=== PATIENT | female | born 1990 | race Caucasian/White ===

== ENCOUNTER 2021-07-09 23:10 | Emergency (ER) | payer MEDICARE, MEDICAID, SELFPAY ==
[2021-07-09 23:39] VITALS: BP 113/50; PULSE 119; RESP 18; TEMP 36.6; O2SAT 98; BMI 22.3
[2021-07-10 00:54] LABS: Appearance Urine HAZY; Color Urine DK YELLOW; Glucose Urine UA NEG (NEG); Leukocyte Esterase Urine NEG (NEG); Nitrite Urine NEG (NEG); Specific Gravity - Urine >= 1.030 (1.005-1.025); UACC Culture Trigger NO; Urine Blood TRACE (NEG); Urine Ketones 40 MG/DL (NEG); Urine Protein 2+ MG/DL (NEG-TRACE)
[2021-07-10 01:04] LABS: Amorphous Sediment Urine TRACE /LPF; Bacteria Urine TRACE /LPF; Mucus Urine 3+ /LPF; RBC Urine 0-2 /HPF (0); Squamous Epithelial Cell Urine 2+ /LPF; WBC Urine 0-2 /HPF (0-4)
== END 2021-07-10 02:05 | disposition left against medical advice (07) ==
PROVIDERS: Emergency Provider Emergency Medicine
DX: S05.91XA Unspecified injury of right eye and orbit, initial encounter (principal); Y04.2XXA Assault by strike against or bumped into by another person, initial encounter; Y93.9 Activity, unspecified; Y92.9 Unspecified place or not applicable; Y99.9 Unspecified external cause status
CPT/HCPCS: 81001; 99282; 99283

== ENCOUNTER 2021-07-11 20:37 | Inpatient (IN) | payer MEDICARE, MEDICAID, SELFPAY ==
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
[2021-07-11 20:57] VITALS: BP 126/67; PULSE 100; O2SAT 99
[2021-07-11 20:59] VITALS: BP 103/56; PULSE 88; RESP 18; TEMP 37.2; O2SAT 100; BMI 21.4
--- NOTE | 2021-07-11 21:06 | PC.NURSE ---
per [facility] from [facility] [place], patient is going to be a inpt bedsearch as she already evaluated the patient on scene.
[2021-07-11 21:43] LABS: UPreg QC Valid YES; Urine Pregnancy NEGATIVE (NEGATIVE)
[2021-07-11 22:07] LABS: Amphetamine Screen Urine Not Detected (Not Detect); Barbiturates, Urine Not Detected (Not Detect); Benzodiazepines Screen Urine POSITIVE (Not Detect); Cannabinoid Screen Urine POSITIVE (Not Detect); Cocaine Screen Urine Not Detected (Not Detect); Fentanyl, urine Not Detected (Not Detect); Opiate Screen Urine Not Detected (Not Detect); Phencyclidine Screen Urine Not Detected (Not Detect)
[2021-07-11 22:22] LABS: COVID-19 Test Negative (Negative)
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
--- NOTE | 2021-07-11 23:52 | PC.NURSE ---
Provider just in to see pt.
--- NOTE | 2021-07-12 03:10 | PC.NURSE ---
Pt came out of room asking for trash bin. Became tearful, irritable edge, asking where the girl with the long hair was , stating that she had seen her earlier and she was supposed to come back to sign a paper for her to be able to leave. Pt agitated, threw empty trash cup. Went back to her room yelling no one f cares about me . Sitting on her bed crying and repeatedly stating I've done everything you've asked, no one cares . Provider at bedside. Pt to go for CT scan.
--- NOTE | 2021-07-12 03:28 | PC.NURSE ---
Pt back from CT scan. Tearful, repeatedly stating no one cares, states that she came here voluntarily and she is being kept here.
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
[2021-07-12] MEDS: LORazepam 2 MG/ML VIAL IM (06:25)
[2021-07-12] MEDS: OLANZapine 10 MG VIAL 5 MG IM (06:25)
[2021-07-12] MEDS: diphenhydrAMINE HCL 50 MG/ML VIAL IM (06:25)
[2021-07-12 06:30] VITALS: RESP 20
--- NOTE | 2021-07-12 06:34 | PC.NURSE ---
Pt continues to be agitated, perseverating on wanting to leave. Provider was at bedside to talk with pt, however pt unable to have logical conversation as she just repeats wanting to go home, asking different staff if they are God. Pt was again offered medication by different staff, continues to refuse. Security present at this time. Provider ordered IM meds to be given as medication restraint. Zyprexa 5 mg, Ativan 2 mg, Benadryl 50 mg given IM at 0625 without incident. Pt remained agitated for a short time, by 0645 laying in bed, in behavioral control.
[2021-07-12 06:43] VITALS: RESP 18
[2021-07-12 07:00] VITALS: RESP 16
[2021-07-12 07:55] VITALS: BP 112/65; PULSE 75; RESP 16; O2SAT 100
--- NOTE | 2021-07-12 07:57 | PC.NURSE ---
Patient vitals are stable resting comfortably in bed no s/s of distress md made aware.
[2021-07-12] MEDS: ALPRAZolam 0.5 MG TABLET PO (15:33)
--- NOTE | 2021-07-12 18:02 | PC.NURSE ---
DCF called requesting an interview with patient advised that there was no private area for discussion at this time as pod has 8 patients. DCF worker will review with supervisor money room to decide best course of action and call if they will be in tonight. [facility] number is [phone]
[2021-07-12 18:25] LABS: MANUAL DIFF FLAG NO
[2021-07-12 18:27] LABS: Basophils Percent Auto 0.4 % (0-2); Eosinophils Absolute Auto 0.2 X10*3/uL (0.0-0.4); Eosinophils Percent Auto 3.4 % (0-4); Hematocrit 41.8 % (37.0-47.0); Imm Gran Abs Auto 0.01 X10*3/uL (0.00-0.03); Imm Gran Pct Auto 0.1 % (0.0-0.4); Lymphocytes Absolute Auto 3.2 X10*3/uL (1.2-4.9); Lymphocytes Percent Auto 46.5 % (20-40); Mean Corpuscular HGB Conc 33.5 g/dl (31.0-35.0); Mean Corpuscular Hemoglobin 32.3 pg (27.0-33.0); Mean Corpuscular Volume 96.5 fL (80.0-98.0); Mean Platelet Volume 9.5 fL (9.4-12.3); Monocytes Absolute Auto 0.7 X10*3/uL (0.1-1.2); Neutrophils Absolute Auto 2.7 x10*3/uL (2.0-8.3); Neutrophils Percent Auto 39.6 % (45-73); Platelet Count 224 X10*3/uL (160-400); Red Blood Count 4.33 X10*6/uL (4.20-5.50); Red Cell Distribution Width 12.9 % (11.0-16.0); White Blood Count 6.8 X10*3/uL (4.8-10.8)
[2021-07-12 18:43] LABS: Alanine Aminotransferase 46 U/L (0-31); Albumin Level 4.2 g/dL (3.5-5.0); Alkaline Phosphatase 73 U/L (39-117); Anion Gap 13 (12-20); Aspartate Amino Transferase 61 U/L (5-31); Blood Urea Nitrogen 10 mg/dL (9-16); Calcium 9.2 mg/dL (8.4-10.2); Carbon Dioxide 25 mmol/L (22-29); Chloride 108 mmol/L (96-108); Creatinine Clr Calc Pharmacy 103.9; Estimated Glomerular Filt Rate > 60; Glucose Random 108 mg/dL (60-115); Magnesium 2.4 mg/dL (1.6-2.6); Potassium 3.6 mmol/L (3.3-5.1); Sodium 142 mmol/L (135-145); Total Protein 7.3 g/dL (6.5-8.0)
--- NOTE | 2021-07-12 19:05 | PC.NURSE ---
Pt talking with other Pt in community area, Pt calm/cooperative at this time, safety maintained, this RN continues to monitor.
[2021-07-12] MEDS: OXcarbazepine 300 MG TABLET PO (19:52)
--- NOTE | 2021-07-12 20:10 | PC.NURSE ---
Pt took bedtime meds without incident, Pt calm/cooperative at this time, safety maintained, this RN continues to monitor.
[2021-07-13] MEDS: ALPRAZolam 0.5 MG TABLET PO ×2 (03:03→08:34)
--- NOTE | 2021-07-13 03:15 | PC.NURSE ---
Pt given PRN Xanax per PT request, Pt calm/cooperative at this time, safety maintained, this RN continues to monitor.
[2021-07-13 03:59] VITALS: BP 110/70; PULSE 84; RESP 17; O2SAT 99
[2021-07-13 05:45] VITALS: BP 113/69; PULSE 83; RESP 18; TEMP 36.7; O2SAT 100
--- NOTE | 2021-07-13 06:35 | PC.NURSE ---
Pt taking shower, tech outside door, safety maintained, this RN continue to monitor.
[2021-07-13] MEDS: OLANZapine 5 MG TABLET PO (08:34)
--- NOTE | 2021-07-13 11:56 | PC.NURSE ---
DCF at bedside to speak with pt
[2021-07-13 15:52] VITALS: BP 99/53; PULSE 85; RESP 15; TEMP 36.7; O2SAT 98
--- NOTE | 2021-07-13 16:09 | PC.NURSE ---
pt seen by N, pt continues to be a [facility] bed search. she showered twice on this shift, is labile and tearful at times. mostly cooperative. no complaints at this time. NAD. will continue to monitor
[2021-07-13] MEDS: OXcarbazepine 300 MG TABLET PO (20:15)
--- NOTE | 2021-07-14 | ECG_ITS ---
Test Reason : MEDICAL CLEARANCE Blood Pressure : / mmHG Vent. Rate : 079 BPM Atrial Rate : 079 BPM P-R Int : 132 ms QRS Dur : 090 ms QT Int : 392 ms P-R-T Axes : 078 088 077 degrees QTc Int : 449 ms Normal sinus rhythm Normal ECG When compared with ECG of 30-AUG-2017 15:16, No significant change was found Referred By: Alona Snowden Electronically Signed By:MODESTO AQUINO MD
[2021-07-14 01:17] VITALS: BP 123/71; PULSE 81; RESP 16; TEMP 37.3; O2SAT 100
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
[2021-07-14] MEDS: ALPRAZolam 0.5 MG TABLET PO ×3 (07:26→21:04)
--- NOTE | 2021-07-14 07:30 | PC.NURSE ---
patient awake at beginning of shift wandering in unit on telephone call and soon thereafter requesting xanax. patient appears in no distress.
[2021-07-14 13:44] LABS: COVID-19 Test Negative (Negative)
[2021-07-14 16:21] VITALS: BP 100/58; PULSE 89; RESP 18; TEMP 37.3; O2SAT 100
[2021-07-14 18:00] VITALS: BP 110/67; PULSE 74; RESP 18; TEMP 36.6; O2SAT 99
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
[2021-07-14] MEDS: OXcarbazepine 300 MG TABLET PO (21:04)
[2021-07-14] MEDS: OLANZapine 10 MG TABLET PO (21:04)
[2021-07-15] MEDS: Acetaminophen 325 MG TABLET 650 MG PO (08:42)
[2021-07-15 08:44] VITALS: BP 119/65; PULSE 77; TEMP 36.2; O2SAT 100
[2021-07-15 08:58] LABS: Cholesterol 143 mg/dL; Estimated Average Glucose 97 mg/dL; HDL Cholesterol 33 mg/dL; LDL Cholesterol Calculated 95 mg/dl; Triglycerides 78 mg/dL
[2021-07-15] MEDS: ALPRAZolam 0.5 MG TABLET PO ×3 (10:09→22:50)
--- NOTE | 2021-07-15 13:14 | MHC.CLN ---
NUTRITION DISCUSSED WEIGHT LOSS WITH PATIENT. STATED THAT WAS FASTING DURING LENT AND LOST WEIGHT. APPETITE IS BETTER. LIKES ENSURE. ADDING ENSURE BID TO PROVIDE ADDITIONAL 700 KCAL, 40 G PROTEIN.
[2021-07-15 18:00] VITALS: BP 140/62; PULSE 96; RESP 16; TEMP 36.6; O2SAT 100
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
[2021-07-15] MEDS: OLANZapine 10 MG TABLET PO (21:16)
[2021-07-15] MEDS: OXcarbazepine 300 MG TABLET PO (21:16)
[2021-07-15] MEDS: OLANZapine 5 MG TABLET PO (22:50)
[2021-07-16] MEDS: Acetaminophen 325 MG TABLET 650 MG PO (05:16)
[2021-07-16 08:17] VITALS: BP 134/63; PULSE 85; RESP 17; TEMP 36.6; O2SAT 100
[2021-07-16] MEDS: Magnesium Hydrox/Alum Hydrox 30 ML ORAL.SUSP PO (11:51)
--- NOTE | 2021-07-16 15:58 | HO.PSYCHPN ---
Subjective Subjective Date of Service: 07/16/21 Reason For Visit: disorganized behavior Interim History: pt calm and cooperative. black eye slightly improved. reports feeling more calm and focused now, more optimistic. planning to discharge tomorrow. per staff, 3-day matures 07/17. missing kids. no AVH. interacting appropriately, some crying and screaming eves, though. c/o racing thoughts. up from 0330 this morning. Mental Status Exam Mental Status Exam Narrative: appropriately dressed and groomed. substantial black eye and injected sclera of right eye. cooperative. no PMA/PMR. speech nml in amount, rate, loudness, latency. thoughts generally linear and logical. affect constricted. mood euthymic. no SI/HI/AVH expressed. Diagnostics Vital Signs (24Hr): Vital Signs - 24 hr 07/15/21 18:00 07/16/21 08:17 Temperature 97.9 F 97.9 F Pulse Rate 96 85 Respiratory Rate 16 17 Blood Pressure 140/62 H 134/63 Pulse Oximetry 100 100 BMI result Body Mass Index 21.4 Labs Results: 07/12/21 18:20 07/12/21 18:20 Labs: Laboratory Results - last 48 hr 07/15/21 07/15/21 08:22 08:22 Estimat Average Glucose 97 Hemoglobin A1c % 5.0 Triglycerides 78 Cholesterol 143 LDL Cholesterol, Calc 95 HDL Cholesterol 33 Imaging Radiology Impressions: ITS Impressions Face CT 07/12/21 03:30 IMPRESSION: 1. No acute intracranial findings. 2. No acute maxillofacial fracture. Head CT 07/12/21 03:30 IMPRESSION: 1. No acute intracranial findings. 2. No acute maxillofacial fracture. Medications Medications Current Medications Acetaminophen (Acetaminophen 325 Mg Tablet) 650 mg PO Q6H PRN PRN Reason: Headache/Pain Mild Scale (1-3) Last Admin: 07/16/21 05:16 Dose: 650 mg Documented by: Al Hydroxide/Mg Hydroxide (Magnesium Hydrox/Alum Hydrox 30 Ml Oral.Susp) 30 ml PO Q6H PRN PRN Reason: Heartburn/Nausea Last Admin: 07/16/21 11:51 Dose: 30 ml Documented by: Albuterol Sulfate (Albuterol Sulfate 90 Mcg 8 Gm Inhaler) 1 puff INHALE Q4H PRN PRN Reason: wheezing Alprazolam (Alprazolam 0.5 Mg Tablet) 0.5 mg PO QID PRN PRN Reason: anxiety Last Admin: 07/15/21 22:50 Dose: 0.5 mg Documented by: Hydroxyzine HCl (Hydroxyzine Hcl 25 Mg Tablet) 25 mg PO QID PRN PRN Reason: Anxiety Loratadine (Loratadine 10 Mg Tablet) 10 mg PO DAILY PRN PRN Reason: allergic rhinitis Magnesium Hydroxide (Milk Of Magnesia 30 Ml Oral.Susp) 30 ml PO DAILY PRN PRN Reason: Constipation Nicotine Polacrilex (Nicotine Polacrilex 2 Mg Gum) 2 mg BUCCAL Q2H PRN PRN Reason: Nicotine Cravings Nicotine Polacrilex (Nicotine Polacrilex 2 Mg Gum) 4 mg BUCCAL Q2H PRN PRN Reason: Nicotine Cravings Olanzapine (Olanzapine 5 Mg Tablet) 5 mg PO BID PRN PRN Reason: anxiety/agitation Last Admin: 07/15/21 22:50 Dose: 5 mg Documented by: Olanzapine (Olanzapine 10 Mg Tablet) 10 mg PO BEDTIME DARRYL Last Admin: 07/15/21 21:16 Dose: 10 mg Documented by: Oxcarbazepine (Oxcarbazepine 300 Mg Tablet) 300 mg PO BEDTIME DARRYL Last Admin: 07/15/21 21:16 Dose: 300 mg Documented by: Trazodone HCl (Trazodone Hcl 50 Mg Tablet) 50 mg PO BEDTIME PRN PRN Reason: Insomnia Allergies Allergies Allergy/AdvReac Type Severity Reaction Status Date / Time No Known Allergies Allergy Unverified 12/14/19 17:07 [No Known Allergies*] Assessment & Plan Assessment & Plan (1) Mood disorder: Status: Acute Code(s): F39 - Unspecified mood [affective] disorder Assessment and Plan: R/O PTSD R/O personality disorder R/O Bipolar Disorder Plan restarted outpt regimen of trileptal 300 mg at HS. added zyprexa 10 mg at HS. xanax at 0.5 mg QID PRN for now. discharge tomorrow. I spent ___25___ minutes with the patient and/or on the patient floor today, greater than?50% of which was spent counseling/coordinating care. Reason for contiued inpatient stay Substantial Risk for: harm to self, inability to function and rapid decompensation
[2021-07-16] MEDS: Nicotine Polacrilex 2 MG GUM BUCCAL (20:03)
[2021-07-16] MEDS: ALPRAZolam 0.5 MG TABLET PO (20:03)
[2021-07-16 20:16] VITALS: BP 127/75; PULSE 100; RESP 16; TEMP 36.6; O2SAT 100
[2021-07-16] MEDS: OXcarbazepine 300 MG TABLET PO (20:41)
[2021-07-16] MEDS: OLANZapine 10 MG TABLET PO (20:41)
[2021-07-17 07:50] VITALS: BP 118/67; PULSE 92; RESP 16; TEMP 36.6; O2SAT 98
[2021-07-17] MEDS: ALPRAZolam 0.5 MG TABLET PO (08:06)
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
[2021-07-17] MEDS: hydrOXYzine HCL 25 MG TABLET PO (10:54)
[2021-07-17] MEDS: OLANZapine 5 MG TABLET PO (10:55)
== END 2021-07-17 10:58 | disposition home or self-care (01) | DRG 885 ==
LOC: HO.ED 07-14 12:07 → HO.PADLT16 07-14 16:35
PROVIDERS: Physician Assistant; Psychiatry & Neurology Psychiatry; Admitting Provider Psychiatry & Neurology Psychiatry; Emergency Provider Emergency Medicine; Visit Provider Psychiatry & Neurology Psychiatry
DX: F39 Unspecified mood [affective] disorder (principal); S00.11XA Contusion of right eyelid and periocular area, initial encounter; Y04.2XXA Assault by strike against or bumped into by another person, initial encounter; Y07.12 Biological mother, perpetrator of maltreatment and neglect; Z20.822 Contact with and (suspected) exposure to COVID-19; F17.210 Nicotine dependence, cigarettes, uncomplicated; Z71.6 Tobacco abuse counseling; Z79.51 Long term (current) use of inhaled steroids; Z79.899 Other long term (current) drug therapy
CPT/HCPCS: 36415; 70450; 70486; 80053; 80061; 80307; 81025; 83036; 83735; 85025; 87635; 93005; 96372; 99285; J1200; J2060

== ENCOUNTER 2021-09-04 20:47 | Inpatient (IN) | payer MEDICARE, MEDICAID, SELFPAY ==
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
[2021-09-05 07:52] LABS: Estimated Average Glucose 91 mg/dL; Hemoglobin A1c % 4.8 %
[2021-09-05 08:01] LABS: Cholesterol 163 mg/dL; HDL Cholesterol 51 mg/dL; LDL Cholesterol Calculated 98 mg/dl; Magnesium 2.2 mg/dL (1.6-2.6); Triglycerides 72 mg/dL
[2021-09-05 08:23] LABS: Thyroid Stimulating Hormone 2.58 uIU/mL (0.32-4.0)
[2021-09-05] MEDS: Multivitamin TABLET 1 TAB PO (08:48)
[2021-09-05 08:53] VITALS: BP 113/64; PULSE 77; RESP 17; TEMP 36.8; O2SAT 100
[2021-09-05 08:57] LABS: Folate 16.4 ng/mL (> or = 4.0); Vitamin B12 471 pg/mL (200-900)
[2021-09-05] MEDS: HaloperidoL 1 MG TABLET 3 MG PO (11:59)
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
[2021-09-05 21:14] VITALS: BP 99/54; PULSE 70; RESP 16; TEMP 36.3; O2SAT 100
[2021-09-05] MEDS: diphenhydrAMINE HCL 25 MG TABLET PO (21:18)
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
[2021-09-06] MEDS: Multivitamin TABLET 1 TAB PO (09:13)
[2021-09-06 09:20] VITALS: BP 116/55; PULSE 82; RESP 18; TEMP 36.6; O2SAT 100
[2021-09-06] MEDS: Acetaminophen 325 MG TABLET 650 MG PO ×2 (09:34→17:12)
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
[2021-09-06] MEDS: Folic Acid 1 MG TABLET PO (17:07)
--- NOTE | 2021-09-06 17:15 | HE.PHANOTE ---
Discussed risk vs benefit of haldol, alprazolam and hydroxyzine with Sheela Valadez. Per physician higher doses of benzos (ie clonazpam 8mg ) could be potentially dangerous to use, but lower doses are acceptable to use.
[2021-09-06 20:35] VITALS: BP 114/56; PULSE 80; RESP 18; TEMP 36.7; O2SAT 100
[2021-09-06] MEDS: HaloperidoL 1 MG TABLET 3 MG PO (20:55)
[2021-09-06] MEDS: diphenhydrAMINE HCL 25 MG TABLET PO (20:55)
[2021-09-06] MEDS: ALPRAZolam 0.5 MG TABLET PO (20:55)
[2021-09-06] MEDS: Pyridoxine HCl (Vitamin B6) 50 MG TABLET 25 MG PO (20:55)
--- NOTE | 2021-09-07 07:00 | HO.PSYCHPN ---
Subjective Subjective Date of Service: 09/07/21 Reason For Visit: Depression Interim History: Pt reports tightness of jaw and difficulty speaking, which could be related to haldol. She agrees to IM benadryl as she states she ahs had paradoxycal rx to ativan. Pt reports she is willing to try another antipsychotic and even would like a GEORGE. She agrees to take paliperidone 3mg po qhs- reviewed most data on haldol, less so on paliperidone but benefit seems to outweight risk of potential low weight at , less so for malformations. Medication Compliance: Yes Side effects from medications: No Review of Systems Review of Systems Denies any recent fever chills or decrease in appetite respiratory denies any shortness of breath coverage production cardiovascular denies cardiac disease gastrointestinal denies any dysphagia abdominal pain nausea vomiting or diarrhea genitourinary denies any dysuria frequency or hematuria musculoskeletal denies any joint pain or swelling neuropsych denies any weakness or seizures all other systems reviewed are negative Mental Status Exam Mental Status Exam Narrative: A&O. In hospital attire, normal body habitus. Good eye contact, attentive. No Tics or Tremors. No abnormal involuntary movements. Calm, overall cooperative and engaged but minimizing sx. Non-pressured speech, spontaneous with regular rate and rhythm, normal volume and prosody. No prolonged speech latency or dysarthria. Mood is ?fine,? affect is euthymic. Denies SI/SIB/HI upon inquiry. Denies A/VH or delusional thought content. Thoughts are grandiose. No known cognitive or memory impairment. Insight/ Judgment limited. Diagnostics Vital Signs (24Hr): Vital Signs - 24 hr 09/07/21 08:14 09/07/21 11:15 09/07/21 13:39 Temperature 98.2 F Pulse Rate 82 89 90 Respiratory Rate 18 20 18 Blood Pressure 105/54 L 105/54 L 116/54 L Pulse Oximetry 98 99 99 Oxygen Delivery Method Room Air Room Air Room Air 09/07/21 13:45 09/07/21 18:00 Temperature 98.3 F Pulse Rate 90 89 Respiratory Rate 18 18 Blood Pressure 116/54 L 113/59 L Pulse Oximetry 99 100 Oxygen Delivery Method Room Air Room Air Labs Labs: Laboratory Results - last 48 hr 09/06/21 13:43 Beta HCG, Quant [id number] Medications Medications Current Medications Acetaminophen (Acetaminophen 325 Mg Tablet) 650 mg PO Q6H PRN PRN Reason: Headache/Pain Mild Scale (1-3) Last Admin: 09/07/21 20:56 Dose: 650 mg Al Hydroxide/Mg Hydroxide (Magnesium Hydrox/Alum Hydrox 30 Ml Oral.Susp) 30 ml PO Q6H PRN PRN Reason: Heartburn/Nausea Alprazolam (Alprazolam 0.5 Mg Tablet) 0.5 mg PO BID [facility] Last Admin: 09/07/21 20:54 Dose: 0.5 mg Diphenhydramine HCl (Diphenhydramine Hcl 25 Mg Tablet) 25 mg PO BEDTIME [facility] Last Admin: 09/07/21 20:56 Dose: 25 mg Folic Acid (Folic Acid 1 Mg Tablet) 1 mg PO DAILY [facility] Last Admin: 09/07/21 08:00 Dose: 1 mg Hydroxyzine HCl (Hydroxyzine Hcl 25 Mg Tablet) 25 mg PO Q6H PRN PRN Reason: Anxiety Magnesium Hydroxide (Milk Of Magnesia 30 Ml Oral.Susp) 30 ml PO DAILY PRN PRN Reason: Constipation Multivitamins/Vitamin C (Multivitamin Tablet) 1 tab PO DAILY [facility] Last Admin: 09/07/21 08:00 Dose: 1 tab Paliperidone (Paliperidone Er 3 Mg Tab.Er.24) 3 mg PO BEDTIME [facility] Last Admin: 09/07/21 20:56 Dose: 3 mg Pyridoxine HCl (Pyridoxine Hcl (Vitamin B6) 50 Mg Tablet) 25 mg PO BEDTIME [facility] Last Admin: 09/07/21 20:54 Dose: 25 mg Trazodone HCl (Trazodone Hcl 50 Mg Tablet) 50 mg PO BEDTIME PRN PRN Reason: Insomnia Allergies Allergies Allergy/AdvReac Type Severity Reaction Status Date / Time No Known Allergies Allergy Unverified 12/14/19 17:07 [No Known Allergies*] Assessment & Plan Assessment & Plan (1) Schizoaffective disorder, bipolar type: Status: Acute Code(s): F25.0 - Schizoaffective disorder, bipolar type Plan 30-year-old woman admitted to Adult Psychiatric Unit. . At this time she denies any acute medical complaints. Asthma. No exacerbation May continue albuterol as needed Smoker Continue and NRT as needed Patient claims to be 3 months but has not been followed up by an OBGYN as of yet Will check hCG Mental health Management as per psychiatric team 09/06 continue haldol 3mg po qhs- pt does not want higher dose until sure no side effects. we discussed safety during but potential for low weight at , but also considering effects of untreated mental illness on fetus. at this point benefit of tx with antipsychotic outweights risks. 09/07 some degree of dystonia noted, pt asks for different antipsychotic, explain less data on new agents but safe from data considering benefits outweight risks of not treating mental illness at this time. I spent ___25___ minutes with the patient and/or on the patient floor today, greater than?50% of which was spent counseling/coordinating care. Reason for contiued inpatient stay Substantial Risk for: inability to function
[2021-09-07] MEDS: Folic Acid 1 MG TABLET PO (08:00)
[2021-09-07] MEDS: Multivitamin TABLET 1 TAB PO (08:00)
[2021-09-07] MEDS: ALPRAZolam 0.5 MG TABLET PO ×2 (08:00→20:54)
[2021-09-07] MEDS: Acetaminophen 325 MG TABLET 650 MG PO ×2 (08:00→20:56)
[2021-09-07 08:14] VITALS: BP 105/54; PULSE 82; RESP 18; TEMP 36.8; O2SAT 98
[2021-09-07] MEDS: diphenhydrAMINE HCL 50 MG/ML VIAL 25 MG IM (10:48)
--- NOTE | 2021-09-07 10:52 | PC.NURSE ---
Patient reported top provider sensation of jaw stiffness causing 'slow' speech. Patient given Benadryl IM as ordered, continue to monitor.
[2021-09-07 11:15] VITALS: BP 105/54; PULSE 89; RESP 20; O2SAT 99
--- NOTE | 2021-09-07 11:48 | PC.NURSE ---
Late entry for 1115: Patient re-evaluated for jaw stiffness- she reports stiffness is nearly resolved 'and I'm less drowsy too.' Patient continues to be tearful at times, concerned about her children, concerned about side effects from the medications.
[2021-09-07 13:39] VITALS: BP 116/54; PULSE 90; RESP 18; O2SAT 99
--- NOTE | 2021-09-07 13:39 | PC.NURSE ---
Reassessed patient who report that she is feeling better 'not so groggy' when asked about her jaw patient reports that 'it's getting there, everything is getting there.' Patient encouraged to notify staff with any concerns or recurrence of symptoms.
[2021-09-07 13:45] VITALS: BP 116/54; PULSE 90; RESP 18; O2SAT 99
[2021-09-07 18:00] VITALS: BP 113/59; PULSE 89; RESP 18; TEMP 36.8; O2SAT 100
[2021-09-07] MEDS: Pyridoxine HCl (Vitamin B6) 50 MG TABLET 25 MG PO (20:54)
[2021-09-07] MEDS: Paliperidone ER 3 MG TAB.ER.24 PO (20:56)
[2021-09-07] MEDS: diphenhydrAMINE HCL 25 MG TABLET PO (20:56)
[2021-09-08 08:09] VITALS: BP 126/58; PULSE 88; RESP 17; TEMP 36.7; O2SAT 100
[2021-09-08] MEDS: Acetaminophen 325 MG TABLET 650 MG PO (08:12)
[2021-09-08] MEDS: ALPRAZolam 0.5 MG TABLET PO (08:12)
[2021-09-08] MEDS: Folic Acid 1 MG TABLET PO (08:12)
[2021-09-08] MEDS: Multivitamin TABLET 1 TAB PO (08:12)
--- NOTE | 2021-09-08 13:43 | P.PNPSI_ITS ---
Subjective Subjective Date of Service: 09/08/21 Reason For Visit: Depression Interim History: pt much more calm and less pressured and labile than on wednesday. recounts her recent dystonic rxn over the w/e and her switch to invega, on which she feels better and w/o side effects. interested in GEORGE at some point. discussion held re her 3-day notice and commitment. informs pt he does not believe she is committable and would not file for that, and at the same time believes pt would be well-served by remaining in the hospital for the time being. pt states she really insists on leaving tomorrow, in that case. she states her hyper- thinking has lessened, but is not feeling too slowed (as she was on haldol). also when her anxiety álvaro recently it levelled and then came down, not spiralling out of control as it had been otherwise recently. per staff, 3-day up tomorrow. tearful, hyperverbal, tangential over w/e. dystonic rxn to haldol. started on invega yesterday. on scheduled xanax. Mental Status Exam Mental Status Exam Narrative: A&O. In street clothes, normal body habitus. Good eye contact, attentive. No Tics or Tremors. No abnormal involuntary movements. Calm, overall cooperative and engaged but minimizing sx. Non-pressured speech, spontaneous with regular rate and rhythm, normal volume and prosody. No prolonged speech latency or dysarthria. Mood is euthymic, affect is full range, normo-intense, non-labile. no SI/SIB/HI/AVH expressed. no delusions expressed, less grandiose, no faith content. No known cognitive or memory impairment. Insight/ Judgment improved. Diagnostics Vital Signs (24Hr): Vital Signs - 24 hr 09/07/21 13:45 09/07/21 18:00 09/08/21 08:09 Temperature 98.3 F 98.1 F Pulse Rate 90 89 88 Respiratory Rate 18 18 17 Blood Pressure 116/54 L 113/59 L 126/58 L Pulse Oximetry 99 100 100 Oxygen Delivery Method Room Air Room Air Room Air Labs Labs: Laboratory Results - last 48 hr 09/06/21 13:43 Beta HCG, Quant [id number] Medications Medications Current Medications Acetaminophen (Acetaminophen 325 Mg Tablet) 650 mg PO Q6H PRN PRN Reason: Headache/Pain Mild Scale (1-3) Last Admin: 09/08/21 08:12 Dose: 650 mg Al Hydroxide/Mg Hydroxide (Magnesium Hydrox/Alum Hydrox 30 Ml Oral.Susp) 30 ml PO Q6H PRN PRN Reason: Heartburn/Nausea Alprazolam (Alprazolam 0.5 Mg Tablet) 0.5 mg PO BID [facility] Last Admin: 09/08/21 08:12 Dose: 0.5 mg Diphenhydramine HCl (Diphenhydramine Hcl 25 Mg Tablet) 25 mg PO BEDTIME [facility] Last Admin: 09/07/21 20:56 Dose: 25 mg Folic Acid (Folic Acid 1 Mg Tablet) 1 mg PO DAILY [facility] Last Admin: 09/08/21 08:12 Dose: 1 mg Hydroxyzine HCl (Hydroxyzine Hcl 25 Mg Tablet) 25 mg PO Q6H PRN PRN Reason: Anxiety Magnesium Hydroxide (Milk Of Magnesia 30 Ml Oral.Susp) 30 ml PO DAILY PRN PRN Reason: Constipation Multivitamins/Vitamin C (Multivitamin Tablet) 1 tab PO DAILY [facility] Last Admin: 09/08/21 08:12 Dose: 1 tab Paliperidone (Paliperidone Er 3 Mg Tab.Er.24) 3 mg PO BEDTIME [facility] Last Admin: 09/07/21 20:56 Dose: 3 mg Pyridoxine HCl (Pyridoxine Hcl (Vitamin B6) 50 Mg Tablet) 25 mg PO BEDTIME [facility] Last Admin: 09/07/21 20:54 Dose: 25 mg Trazodone HCl (Trazodone Hcl 50 Mg Tablet) 50 mg PO BEDTIME PRN PRN Reason: Insomnia Allergies Allergies Allergy/AdvReac Type Severity Reaction Status Date / Time No Known Allergies Allergy Unverified 12/14/19 17:07 [No Known Allergies*] Assessment & Plan Assessment & Plan (1) Schizoaffective disorder, bipolar type: Status: Acute Code(s): F25.0 - Schizoaffective disorder, bipolar type Plan 30 y.o. Female who was brought to [facility] ED on 09/03/2021 via EMS on SEction 12 issued by [facility] after her ex- called 911 as pt reportedly showed up at his home to attempt to get her 2 children. Her ex has full custody and she tried to lure the kids out the window to leave with her. She endorsed grandiose delusions, religiously preoccupied. Pt is 14 weeks , has been med non- adherent, recently discharged from [facility] 08/22/21. Pt has trauma hx. 09/05: began haldol therapy 3 mg PO BID.? first generation neuroleptics not found to be associated with defects, haldol has been around a very long time and has been heavily used in situations such as this.? titrate haldol as tolerated.? if needed, use antihistamines for EPS, as they are considered safer in than cogentin.? VPA, lithium, and tegretol are not considered safe medications for this patient at the present time.? pt signed 3-day notice 09/04. 09/06: continued haldol 3mg po qhs- pt does not want higher dose until sure no side effects. we discussed safety during but potential for low weight at , but also considering effects of untreated mental illness on fetus. at this point benefit of tx with antipsychotic outweights risks. 09/07: some degree of dystonia noted, pt asked for different antipsychotic, explain less data on new agents but safe from data considering benefits out weight risks of not treating mental illness at this time. paliperidone 3 mg QHS started. 09/08: tolerating paliperidone well. continue current mgmt. 3-day matures tomorrow, pt will be discharged to outpt care as she does not meet involuntary hospitalization criteria. I spent ___35___ minutes with the patient and/or on the patient floor today, greater than?50% of which was spent counseling/coordinating care. Reason for contiued inpatient stay Substantial Risk for: inability to function and rapid decompensation
--- NOTE | 2021-09-08 15:22 | MHC.CLN ---
NUTRITION CONSULT FOR ENSURE, PATIENT IS . PATIENT WOULD LIKE ENSURE TID. SUPPLEMENT PROVIDES ADDITIONAL 1050 KCALS, 60 G PROTEIN. ADDED TO ORDER.
[2021-09-08 21:10] VITALS: BP 106/57; PULSE 91; RESP 18; TEMP 36.9; O2SAT 100
[2021-09-08] MEDS: Paliperidone ER 3 MG TAB.ER.24 PO (21:14)
[2021-09-08] MEDS: Pyridoxine HCl (Vitamin B6) 50 MG TABLET 25 MG PO (21:14)
[2021-09-08] MEDS: diphenhydrAMINE HCL 25 MG TABLET PO (21:14)
[2021-09-09 08:00] VITALS: BP 114/69; PULSE 89; RESP 16; TEMP 36.3; O2SAT 100
[2021-09-09] MEDS: Folic Acid 1 MG TABLET PO (09:07)
[2021-09-09] MEDS: ALPRAZolam 0.5 MG TABLET PO (09:07)
[2021-09-09] MEDS: Multivitamin TABLET 1 TAB PO (09:07)
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
== END 2021-09-09 11:45 | disposition home or self-care (01) | DRG 833 ==
PROVIDERS: Nurse Practitioner Acute Care; Registered Nurse; Admitting Provider Psychiatry & Neurology Psychiatry; Visit Provider Psychiatry & Neurology Psychiatry
DX: O99.342 Other mental disorders complicating pregnancy, second trimester (principal); F25.0 Schizoaffective disorder, bipolar type; J45.909 Unspecified asthma, uncomplicated; F43.10 Post-traumatic stress disorder, unspecified; F17.210 Nicotine dependence, cigarettes, uncomplicated; Z62.810 Personal history of physical and sexual abuse in childhood; Z3A.14 14 weeks gestation of pregnancy; Z71.6 Tobacco abuse counseling; Z56.0 Unemployment, unspecified; Z91.14 Patient's other noncompliance with medication regimen; Z79.899 Other long term (current) drug therapy; O99.332 Smoking (tobacco) complicating pregnancy, second trimester; O99.512 Diseases of the respiratory system complicating pregnancy, second trimester
CPT/HCPCS: 36415; 80061; 82607; 82746; 83036; 83735; 84439; 84443; 84702; J1200; Q0163

== ENCOUNTER 2023-04-28 14:59 | Inpatient (IN) | payer MEDICARE, MEDICAID, SELFPAY ==
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
[2023-04-28 15:24] VITALS: RESP 18; BMI 19.4
[2023-04-28 15:27] VITALS: BP 111/69; PULSE 90; RESP 18; TEMP 36.7; O2SAT 100
[2023-04-28] MEDS: diphenhydrAMINE HCL 50 MG/ML VIAL IM (15:27)
[2023-04-28] MEDS: Ziprasidone Mesylate 20 MG VIAL IM (15:27)
[2023-04-28] MEDS: Haloperidol Lactate 5 MG/ML VIAL IM (15:27)
--- NOTE | 2023-04-28 15:28 | PC.NURSE ---
Patient requesting IM shot to help [her] sleep. Per MD im to be given. 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
[2023-04-28 16:31] LABS: MANUAL DIFF FLAG NO
[2023-04-28 16:33] LABS: Basophils Percent Auto 0.4 % (0-2); Eosinophils Absolute Auto 0.2 X10*3/uL (0.0-0.4); Hematocrit 37.3 % (37.0-47.0); Hemoglobin 12.8 g/dl (12.0-16.0); Imm Gran Abs Auto 0.02 X10*3/uL (0.00-0.03); Imm Gran Pct Auto 0.3 % (0.0-0.4); Lymphocytes Absolute Auto 2.4 X10*3/uL (1.2-4.9); Lymphocytes Percent Auto 30.4 % (20-40); Mean Corpuscular HGB Conc 34.3 g/dl (31.0-35.0); Mean Corpuscular Hemoglobin 31.9 pg (27.0-33.0); Mean Platelet Volume 9.5 fL (9.4-12.3); Monocytes Absolute Auto 0.6 X10*3/uL (0.1-1.2); Monocytes Percent Auto 7.6 % (2-11); Neutrophils Absolute Auto 4.7 x10*3/uL (2.0-8.3); Neutrophils Percent Auto 59.3 % (45-73); Platelet Count 182 X10*3/uL (160-400); Red Blood Count 4.01 X10*6/uL (4.20-5.50); Red Cell Distribution Width 12.2 % (11.0-16.0)
[2023-04-28 16:44] LABS: COVID-19 Test Negative (Negative); Ethanol < 10 mg/dL; IDNOW Serial# 152EDE1D
[2023-04-28 16:55] LABS: Alanine Aminotransferase 21 U/L (0-31); Albumin Level 4.1 g/dL (3.5-5.0); Alkaline Phosphatase 48 U/L (39-117); Anion Gap 13 (12-20); Aspartate Amino Transferase 28 U/L (5-31); Bilirubin Direct 0.3 mg/dL (0.0-0.5); Bilirubin Total 0.7 mg/dL (0.0-1.0); Blood Urea Nitrogen 9 mg/dL (9-16); Carbon Dioxide 23 mmol/L (22-29); Chloride 108 mmol/L (96-108); Estimated Glomerular Filt Rate > 60; Glucose Random 78 mg/dL (60-115); HCG Quantitative < 2 mIU/mL; Magnesium 1.9 mg/dL (1.6-2.6); Potassium 3.3 mmol/L (3.3-5.1); Sodium 141 mmol/L (135-145); Total Protein 6.8 g/dL (6.5-8.0)
--- NOTE | 2023-04-28 17:37 | PC.NURSE ---
Medication counted by Devonte REDDY and Myself. Brought up to pharmacy.
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
[2023-04-28 19:28] LABS: Appearance Urine Cloudy; Color Urine Dark Yellow; Glucose Urine UA Negative (Negative); Leukocyte Esterase Urine Moderate (2+) (Negative); Nitrite Urine Positive (Negative); Specific Gravity - Urine 1.025 (1.005-1.025); UMIC TRIGGER UACC YES; Urine Blood Moderate (2+) (Negative); Urine Ketones >=160 mg/dL (Negative); Urine Protein Trace mg/dL (Neg-Trace)
[2023-04-28 19:33] LABS: Bacteria Urine 4+ (None Seen); Hyaline Casts Urine 0-2 /LPF (0-2); UACC Culture Trigger YES; WBC Urine 21-50 /HPF (0-5)
[2023-04-28 19:34] LABS: Amphetamine Screen Urine Not Detected (Not Detect); Barbiturates, Urine Not Detected (Not Detect); Benzodiazepines Screen Urine POSITIVE (Not Detect); Cannabinoid Screen Urine POSITIVE (Not Detect); Cocaine Screen Urine Not Detected (Not Detect); Fentanyl, urine Not Detected (Not Detect); Opiate Screen Urine Not Detected (Not Detect); Phencyclidine Screen Urine Not Detected (Not Detect)
--- NOTE | 2023-04-28 19:41 | PC.NURSE ---
Unable to complete med rec with confidence and accuracy.. Informed pharmacy
--- NOTE | 2023-04-28 20:53 | PHA.MEDREC ---
Pharmacy Consult ? Medication Reconciliation Pharmacy has completed the medication reconciliation. Used claim history to do med rec and confirmed meds with patient. She is a little groggy from IM medications but was able to list them for me. I questioned her about the duplication of therapy with ibuprofen 600 mg and naproxen 500 mg but she states she is definitely on both and she states her provider is aware and ok with the duplication. I asked about potential side effects such as bruising, bleeding, or GI effects and she states she hasn't had that issue.
[2023-04-28] MEDS: Sulfamethox/Trimeth 800/160 TABLET 1 TAB PO (21:13)
--- NOTE | 2023-04-29 | ECG_ITS ---
Test Reason : CK QT Blood Pressure : / mmHG Vent. Rate : 081 BPM Atrial Rate : 081 BPM P-R Int : 112 ms QRS Dur : 088 ms QT Int : 400 ms P-R-T Axes : 074 083 069 degrees QTc Int : 464 ms Normal sinus rhythm with sinus arrhythmia Normal ECG When compared with ECG of 14-JUL-2021 11:58, No significant change was found Referred By: Selma Mcleod Electronically Signed By:MODESTO AQUINO MD
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
[2023-04-29] MEDS: ALPRAZolam 0.5 MG TABLET PO ×2 (06:45→13:23)
--- NOTE | 2023-04-29 06:56 | PC.NURSE ---
pt signed a 3 day notice on April, up on Wednesday.
[2023-04-29 08:00] VITALS: BP 122/63; PULSE 95; RESP 16; TEMP 37; O2SAT 96
[2023-04-29] MEDS: NaPROXEN 500 MG TABLET PO ×2 (08:49→22:09)
[2023-04-29] MEDS: Sulfamethox/Trimeth 800/160 TABLET 1 TAB PO ×2 (08:49→22:09)
[2023-04-29 09:38] LABS: Alanine Aminotransferase 21 U/L (0-31); Albumin Level 4.3 g/dL (3.5-5.0); Alkaline Phosphatase 57 U/L (39-117); Anion Gap 12 (12-20); Aspartate Amino Transferase 25 U/L (5-31); Bilirubin Total 0.9 mg/dL (0.0-1.0); Blood Urea Nitrogen 7 mg/dL (9-16); Calcium 9.3 mg/dL (8.4-10.2); Carbon Dioxide 24 mmol/L (22-29); Chloride 107 mmol/L (96-108); Creatinine Clr Calc Pharmacy 98.6; Estimated Glomerular Filt Rate > 60; Glucose Fasting 109 mg/dL (60-99); Potassium 3.5 mmol/L (3.3-5.1); Sodium 139 mmol/L (135-145); Total Protein 7.4 g/dL (6.5-8.0)
[2023-04-29] MEDS: Albuterol Sulfate 90 MCG 8 GM INHALER 1 PUFF INHALE (10:15)
[2023-04-29] MEDS: hydrOXYzine HCL 25 MG TABLET PO (10:18)
[2023-04-29 10:40] VITALS: BMI 21.7
[2023-04-29] MEDS: OLANZapine 5 MG TABLET PO (11:41)
[2023-04-29] MEDS: Nicotine Polacrilex 2 MG GUM 4 MG BUCCAL (13:26)
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
[2023-04-29 18:00] VITALS: BP 140/69; PULSE 95; RESP 16; TEMP 36.6; O2SAT 99
[2023-04-29] MEDS: OXcarbazepine 300 MG TABLET 600 MG PO (22:08)
[2023-04-29] MEDS: traZODone HCL 50 MG TABLET PO (22:09)
[2023-04-29] MEDS: OLANZapine ODT 10 MG TAB.RAPDIS TRANSLINGU (22:10)
[2023-04-30 08:00] VITALS: BP 138/64; PULSE 99; RESP 16; TEMP 37.3; O2SAT 97
[2023-04-30] MEDS: ALPRAZolam 0.5 MG TABLET PO ×2 (08:44→22:49)
[2023-04-30] MEDS: Sulfamethox/Trimeth 800/160 TABLET 1 TAB PO ×2 (08:44→22:00)
[2023-04-30] MEDS: NaPROXEN 500 MG TABLET PO ×2 (08:44→22:00)
[2023-04-30 08:49] LABS: Estimated Average Glucose 100 mg/dL; Hemoglobin A1c % 5.1 % (<6.0)
[2023-04-30 09:16] LABS: Thyroid Stimulating Hormone 2.41 uIU/mL (0.32-4.0)
[2023-04-30 09:27] LABS: Folate 9.7 ng/mL (> or = 4.0)
[2023-04-30 09:30] LABS: Vitamin B12 829 pg/mL (200-900)
[2023-04-30] MEDS: hydrOXYzine HCL 25 MG TABLET PO (13:45)
[2023-04-30] MEDS: Albuterol Sulfate 90 MCG 8 GM INHALER 1 PUFF INHALE (14:18)
[2023-04-30] MEDS: Nicotine Polacrilex 2 MG GUM 4 MG BUCCAL (14:29)
--- NOTE | 2023-04-30 16:11 | P.PNPSI_ITS ---
Subjective Subjective Date of Service: 04/30/23 Reason For Visit: Schizoaffective Disorder, Bipolar Type Subjective Notes: Conditional Voluntary and 3 Day Healthcare Proxy: No Guardianship: No Medical Problems Affecting Mental Status: No Interim History: Erin is visable in milieu. She reports no current questions or concerns. She is in agreement we should re-titrate her regime to assess efficacy. Team reports seven hours of sleep. Three day notice to 05/04/23. Visited by froy today. She is interactive with peers and offering support to her room-mate. She presents with less fear and lability today. Medication Compliance: Yes Side effects from medications: No Attending Groups: Intermittent Review of Systems Acute medical concerns: No Medical Review of Systems: unchanged Review of Systems Review of Systems Yes all other systems are reviewed and are negative Mental Status Exam Mental Status Exam Patient Appearance: Appropriate Patient Orientation: Person, Place, Time and Situation Level of Consciousness: Alert Patient Behavior: Talkative, Cooperative and Good Eye Contact Mood Description: Anxious Affect Description: Constricted Patient Cognition Impaired: No Ability to Follow Directions: Good Speech Pattern: Spontaneous Speech Memory Description: Intact Hallucinations: None Delusions: Not Present Perceptual Disturbances: Depersonalization Thought Process: Distracted Thought Content: positive for Circumstantial and positive for Suicidal Ideation (denies) Depressive Symptoms: Increased Anxiety and Difficulty Concentrating Judgement: Fair Diagnostics Vital Signs (24Hr): Vital Signs - 24 hr 04/29/23 18:00 04/30/23 08:00 Temperature 97.9 F 99.1 F Pulse Rate 95 99 Respiratory Rate 16 16 Blood Pressure 140/69 H 138/64 Pulse Oximetry 99 97 Oxygen Delivery Method Room Air Room Air BMI result Body Mass Index 21.7 Labs 04/28/23 16:25 04/29/23 09:03 Labs: Laboratory Results - last 48 hr 04/28/23 04/28/23 04/29/23 16:25 19:18 09:03 WBC 8.0 RBC 4.01 L Hgb 12.8 Hct 37.3 MCV 93.0 MCH 31.9 MCHC 34.3 RDW 12.2 Plt Count 182 MPV 9.5 Immature Gran % (Auto) 0.3 Neut % (Auto) 59.3 Lymph % (Auto) 30.4 [place] % (Auto) 7.6 Eos % (Auto) 2.0 Baso % (Auto) 0.4 Lymph # (Auto) 2.4 [place] # (Auto) 0.6 Eos # (Auto) 0.2 Baso # (Auto) 0.0 Abs Immat Gran (auto) 0.02 Absolute Neuts (auto) 4.7 Absolute Nucleated RBC 0.000 Nucleated RBC % (auto) 0.0 Sodium 141 139 Potassium 3.3 3.5 Chloride 108 107 Carbon Dioxide 23 24 Anion Gap 13 12 BUN 9 7 L Creatinine 0.62 0.71 Estim Creat Clear Calc 113.0 98.6 Estimated GFR > 60 > 60 Random Glucose 78 Fasting Glucose 109 H Estimat Average Glucose Hemoglobin A1c % Calcium 9.0 9.3 Magnesium 1.9 Total Bilirubin 0.7 0.9 Direct Bilirubin 0.3 AST 28 25 ALT 21 21 Alkaline Phosphatase 48 57 Total Protein 6.8 7.4 Albumin 4.1 4.3 Vitamin B12 Folate TSH Beta HCG, Quant < 2 Urine Color Dark Yellow Urine Appearance Cloudy Urine pH 6.0 Ur Specific [place] 1.025 Urine Protein Trace Urine Glucose (UA) Negative Urine Ketones >=160 Urine Blood Moderate (2+) H Urine Nitrite Positive H Ur Leukocyte Esterase Moderate (2+) H Urine RBC 6-10 H Urine WBC 21-50 H Ur Squamous Epith Cells 6-10 Urine Bacteria 4+ Hyaline Casts 0-2 Urine Opiates Screen Not Detected Urine Fentanyl Screen Not Detected Ur Barbiturates Screen Not Detected Ur Phencyclidine Scrn Not Detected Ur Amphetamines Screen Not Detected U Benzodiazepines Scrn POSITIVE H Urine Cocaine Screen Not Detected U Marijuana (THC) Screen POSITIVE H Ethyl Alcohol < 10 COVID-19 ([facility]) Negative COVID-19 Clin Com See Note 04/30/23 08:21 WBC RBC Hgb Hct MCV MCH MCHC RDW Plt Count MPV Immature Gran % (Auto) Neut % (Auto) Lymph % (Auto) [place] % (Auto) Eos % (Auto) Baso % (Auto) Lymph # (Auto) [place] # (Auto) Eos # (Auto) Baso # (Auto) Abs Immat Gran (auto) Absolute Neuts (auto) Absolute Nucleated RBC Nucleated RBC % (auto) Sodium Potassium Chloride Carbon Dioxide Anion Gap BUN Creatinine Estim Creat Clear Calc Estimated GFR Random Glucose Fasting Glucose Estimat Average Glucose 100 Hemoglobin A1c % 5.1 Calcium Magnesium Total Bilirubin Direct Bilirubin AST ALT Alkaline Phosphatase Total Protein Albumin Vitamin B12 829 Folate 9.7 TSH 2.41 Beta HCG, Quant Urine Color Urine Appearance Urine pH Ur Specific [place] Urine Protein Urine Glucose (UA) Urine Ketones Urine Blood Urine Nitrite Ur Leukocyte Esterase Urine RBC Urine WBC Ur Squamous Epith Cells Urine Bacteria Hyaline Casts Urine Opiates Screen Urine Fentanyl Screen Ur Barbiturates Screen Ur Phencyclidine Scrn Ur Amphetamines Screen U Benzodiazepines Scrn Urine Cocaine Screen U Marijuana (THC) Screen Ethyl Alcohol COVID-19 ([facility]) COVID-19 Clin Com Medications Medications Current Medications Acetaminophen (Acetaminophen 325 Mg Tablet) 650 mg PO Q6H PRN PRN Reason: Headache/Pain Mild Scale (1-3) Al Hydroxide/Mg Hydroxide (Magnesium Hydrox/Alum Hydrox 30 Ml Oral.Susp) 30 ml PO Q6H PRN PRN Reason: Heartburn/Nausea Albuterol Sulfate (Albuterol Sulfate 90 Mcg 8 Gm Inhaler) 1 puff INHALE Q4H PRN PRN Reason: wheezing Last Admin: 04/30/23 14:18 Dose: 1 puff Alprazolam (Alprazolam 0.5 Mg Tablet) 0.5 mg PO BID PRN PRN Reason: anxiety Last Admin: 04/30/23 08:44 Dose: 0.5 mg Artificial Tears (Artificial Tears 15 Ml Drops) 2 drop EYE-BOTH Q4H PRN PRN Reason: irritation Hydroxyzine HCl (Hydroxyzine Hcl 25 Mg Tablet) 25 mg PO Q6H PRN PRN Reason: Anxiety Last Admin: 04/30/23 13:45 Dose: 25 mg Magnesium Hydroxide (Milk Of Magnesia 30 Ml Oral.Susp) 30 ml PO DAILY PRN PRN Reason: Constipation Naproxen (Naproxen 500 Mg Tablet) 500 mg PO BID [facility] Last Admin: 04/30/23 08:44 Dose: 500 mg Nicotine (Nicotine 21 Mg Patch.Td24) 21 mg TRANSDERMA DAILY PRN PRN Reason: smoking cessation Nicotine Polacrilex (Nicotine Polacrilex 2 Mg Gum) 4 mg BUCCAL Q2H PRN PRN Reason: Nicotine Cravings Last Admin: 04/30/23 14:29 Dose: 4 mg Olanzapine (Olanzapine 5 Mg Tablet) 5 mg PO TID PRN PRN Reason: agitation Last Admin: 04/29/23 11:41 Dose: 5 mg Olanzapine (Olanzapine Odt 10 Mg Tab.Rapdis) 10 mg TRANSLINGU BEDTIME [facility] Last Admin: 04/29/23 22:10 Dose: 10 mg Oxcarbazepine (Oxcarbazepine 300 Mg Tablet) 600 mg PO BEDTIME [facility] Last Admin: 04/29/23 22:08 Dose: 600 mg Trazodone HCl (Trazodone Hcl 50 Mg Tablet) 50 mg PO BEDTIME MRX1 PRN PRN Reason: Insomnia Last Admin: 04/29/23 22:09 Dose: 50 mg Trimethoprim/Sulfamethoxazole (Sulfamethox/Trimeth 800/160 Tablet) 1 tab PO BID [facility] Last Admin: 04/30/23 08:44 Dose: 1 tab Allergies Allergies Allergy/AdvReac Type Severity Reaction Status Date / Time No Known Allergies Allergy Unverified 12/14/19 17:07 [No Known Allergies*] Assessment & Plan Assessment & Plan (1) Schizoaffective disorder, bipolar type: Status: Acute Code(s): F25.0 - Schizoaffective disorder, bipolar type Plan 32 yo female, history of schizoaffective disorder, bipolar type with symptom exacerbation due to medicine non compliance with resulting symptoms of insomnia, lability, erratic behavior (took off in her car-stopped by police), disorganization. Plan: Collateral Contact TDN to 05/04/23. Encourage milieu Re-establish regime-by reported hx, pt stable on this regime for ~3 years. 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 04/30/23- Continue current tx. Patient educated on: therapeutic strategies Informed Consent: understands and further education needed Reason for continued inpatient stay Substantial Risk for: rapid decompensation Time Spent With Patient Time: Total time managing care of this patient today ____ minutes.
[2023-04-30 17:16] VITALS: BP 137/79; PULSE 87; RESP 16; TEMP 36.7; O2SAT 100
[2023-04-30] MEDS: OXcarbazepine 300 MG TABLET 600 MG PO (22:00)
[2023-04-30] MEDS: OLANZapine ODT 10 MG TAB.RAPDIS TRANSLINGU (22:03)
[2023-04-30] MEDS: diphenhydrAMINE HCL 25 MG CAPSULE 50 MG PO (23:21)
[2023-05-01 08:55] VITALS: BP 135/81; PULSE 106; RESP 16; TEMP 36.7
[2023-05-01] MEDS: Sulfamethox/Trimeth 800/160 TABLET 1 TAB PO ×2 (09:01→21:07)
[2023-05-01] MEDS: NaPROXEN 500 MG TABLET PO ×2 (09:03→21:07)
[2023-05-01] MEDS: ALPRAZolam 0.5 MG TABLET PO ×2 (09:03→16:13)
[2023-05-01] MEDS: Albuterol Sulfate 90 MCG 8 GM INHALER 1 PUFF INHALE (09:48)
[2023-05-01] MEDS: Nicotine Polacrilex 2 MG GUM 4 MG BUCCAL (09:49)
--- NOTE | 2023-05-01 10:54 | P.PNPSI_ITS ---
Subjective Subjective Date of Service: 05/01/23 Reason For Visit: Schizoaffective Disorder, Bipolar Type Interim History: met with patient. Discussed with Nursing. Three-day notice in place. Has been guarded at times. Attending some groups. Reports feeling overstimulated at times. 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 Reports feeling very sensitive to the environment and people around her. Denies feeling suicidal. Denied psychosis. Regarding medications, we discussed clonidine perhaps being helpful and open to same. Medication Compliance: Yes Side effects from medications: No Attending Groups: Intermittent Review of Systems Acute medical concerns: No Review of Systems Review of Systems Yes all other systems are reviewed and are negative Mental Status Exam Mental Status Exam Patient Appearance: Appropriate Patient Orientation: Person, Place, Time and Situation Level of Consciousness: Alert Patient Behavior: Talkative, Cooperative and Good Eye Contact Mood Description: Anxious Affect Description: Constricted Patient Cognition Impaired: No Ability to Follow Directions: Good Speech Pattern: Spontaneous Speech Memory Description: Intact Hallucinations: None Delusions: Not Present Thought Process: Distracted Thought Content: positive for Circumstantial and positive for Suicidal Ideation (denies) Depressive Symptoms: Increased Anxiety and Difficulty Concentrating Judgement: Fair Diagnostics Vital Signs (24Hr): Vital Signs - 24 hr 04/30/23 17:16 05/01/23 08:55 Temperature 98.1 F 98.1 F Pulse Rate 87 106 H Respiratory Rate 16 16 Blood Pressure 137/79 135/81 Pulse Oximetry 100 Oxygen Delivery Method Room Air Room Air BMI result Body Mass Index 21.7 Labs 04/28/23 16:25 04/29/23 09:03 Labs: Laboratory Results - last 48 hr 04/30/23 08:21 Estimat Average Glucose 100 Hemoglobin A1c % 5.1 Vitamin B12 829 Folate 9.7 TSH 2.41 Medications Medications Current Medications Acetaminophen (Acetaminophen 325 Mg Tablet) 650 mg PO Q6H PRN PRN Reason: Headache/Pain Mild Scale (1-3) Al Hydroxide/Mg Hydroxide (Magnesium Hydrox/Alum Hydrox 30 Ml Oral.Susp) 30 ml PO Q6H PRN PRN Reason: Heartburn/Nausea Albuterol Sulfate (Albuterol Sulfate 90 Mcg 8 Gm Inhaler) 1 puff INHALE Q4H PRN PRN Reason: wheezing Last Admin: 05/01/23 09:48 Dose: 1 puff Alprazolam (Alprazolam 0.5 Mg Tablet) 0.5 mg PO BID PRN PRN Reason: anxiety Last Admin: 05/01/23 09:03 Dose: 0.5 mg Artificial Tears (Artificial Tears 15 Ml Drops) 2 drop EYE-BOTH Q4H PRN PRN Reason: irritation Diphenhydramine HCl (Diphenhydramine Hcl 25 Mg Capsule) 50 mg PO BEDTIME PRN PRN Reason: Insomnia Last Admin: 04/30/23 23:21 Dose: 50 mg Hydroxyzine HCl (Hydroxyzine Hcl 25 Mg Tablet) 25 mg PO Q6H PRN PRN Reason: Anxiety Last Admin: 04/30/23 13:45 Dose: 25 mg Magnesium Hydroxide (Milk Of Magnesia 30 Ml Oral.Susp) 30 ml PO DAILY PRN PRN Reason: Constipation Naproxen (Naproxen 500 Mg Tablet) 500 mg PO BID [facility] Last Admin: 05/01/23 09:03 Dose: 500 mg Nicotine (Nicotine 21 Mg Patch.Td24) 21 mg TRANSDERMA DAILY PRN PRN Reason: smoking cessation Nicotine Polacrilex (Nicotine Polacrilex 2 Mg Gum) 4 mg BUCCAL Q2H PRN PRN Reason: Nicotine Cravings Last Admin: 05/01/23 09:49 Dose: 4 mg Olanzapine (Olanzapine 5 Mg Tablet) 5 mg PO TID PRN PRN Reason: agitation Last Admin: 04/29/23 11:41 Dose: 5 mg Olanzapine (Olanzapine Odt 10 Mg Tab.Rapdis) 10 mg TRANSLINGU BEDTIME [facility] Last Admin: 04/30/23 22:03 Dose: 10 mg Oxcarbazepine (Oxcarbazepine 300 Mg Tablet) 600 mg PO BEDTIME [facility] Last Admin: 04/30/23 22:00 Dose: 600 mg Trazodone HCl (Trazodone Hcl 50 Mg Tablet) 50 mg PO BEDTIME MRX1 PRN PRN Reason: Insomnia Last Admin: 04/29/23 22:09 Dose: 50 mg Trimethoprim/Sulfamethoxazole (Sulfamethox/Trimeth 800/160 Tablet) 1 tab PO BID [facility] Last Admin: 05/01/23 09:01 Dose: 1 tab Allergies Allergies Allergy/AdvReac Type Severity Reaction Status Date / Time No Known Allergies Allergy Unverified 12/14/19 17:07 [No Known Allergies*] Assessment & Plan Assessment & Plan (1) Schizoaffective disorder, bipolar type: Status: Acute Code(s): F25.0 - Schizoaffective disorder, bipolar type Plan 32 yo female, history of schizoaffective disorder, bipolar type with symptom exacerbation due to medicine non compliance with resulting symptoms of insomnia, lability, erratic behavior (took off in her car-stopped by police), disorganization. Plan: Collateral Contact TDN to 05/04/23. Encourage milieu Re-establish regime-by reported hx, pt stable on this regime for ~3 years. 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 04/30/23- Continue current tx. 05/01: Add clonidine for anxiety Reason for continued inpatient stay Substantial Risk for: rapid decompensation Time Spent With Patient Time: Total time managing care of this patient today ____ minutes.
[2023-05-01 14:40] VITALS: BP 144/78; PULSE 109
[2023-05-01] MEDS: cloNIDine HCL 0.1 MG TABLET PO ×2 (14:48→21:07)
[2023-05-01] MEDS: OXcarbazepine 300 MG TABLET 600 MG PO (21:06)
[2023-05-01] MEDS: OLANZapine ODT 10 MG TAB.RAPDIS TRANSLINGU (21:07)
[2023-05-01] MEDS: diphenhydrAMINE HCL 25 MG CAPSULE 50 MG PO (21:10)
[2023-05-02 08:45] VITALS: BP 117/57; PULSE 86; RESP 16; TEMP 36.8; O2SAT 98
[2023-05-02] MEDS: cloNIDine HCL 0.1 MG TABLET PO ×2 (08:51→21:09)
[2023-05-02] MEDS: Sulfamethox/Trimeth 800/160 TABLET 1 TAB PO ×2 (08:52→21:09)
[2023-05-02] MEDS: NaPROXEN 500 MG TABLET PO ×2 (08:52→21:07)
[2023-05-02] MEDS: ALPRAZolam 0.5 MG TABLET PO (08:54)
--- NOTE | 2023-05-02 12:11 | P.PNPSI_ITS ---
Subjective Subjective Date of Service: 05/02/23 Reason For Visit: Schizoaffective Disorder, Bipolar Type Interim History: Met with patient. Discussed with Nursing. Three-day notice in place. Attending some groups. Reports clonidine very helpful for anxiety, being able to focus on herself and not be as sensitive to the environment people around her. Denies feeling suicidal. Denied psychosis. Very eager for discharge tomorrow, rather than Wednesday (when 3 day notice expires). Medication Compliance: Yes Side effects from medications: No Attending Groups: Yes Review of Systems Acute medical concerns: No Review of Systems Review of Systems Yes all other systems are reviewed and are negative Mental Status Exam Mental Status Exam Patient Appearance: Appropriate Patient Orientation: Person, Place, Time and Situation Level of Consciousness: Alert Patient Behavior: Talkative, Cooperative and Good Eye Contact Mood Description: Anxious Affect Description: Constricted Patient Cognition Impaired: No Ability to Follow Directions: Good Speech Pattern: Spontaneous Speech Memory Description: Intact Hallucinations: None Delusions: Not Present Thought Process: Intact Thought Content: positive for Intact Judgement: Fair Diagnostics Vital Signs (24Hr): Vital Signs - 24 hr 05/01/23 14:40 05/02/23 08:45 Temperature 98.2 F Pulse Rate 109 H 86 Respiratory Rate 16 Blood Pressure 144/78 H 117/57 L Pulse Oximetry 98 Oxygen Delivery Method Room Air BMI result Body Mass Index 21.7 Labs 04/28/23 16:25 04/29/23 09:03 Medications Medications Current Medications Acetaminophen (Acetaminophen 325 Mg Tablet) 650 mg PO Q6H PRN PRN Reason: Headache/Pain Mild Scale (1-3) Al Hydroxide/Mg Hydroxide (Magnesium Hydrox/Alum Hydrox 30 Ml Oral.Susp) 30 ml PO Q6H PRN PRN Reason: Heartburn/Nausea Albuterol Sulfate (Albuterol Sulfate 90 Mcg 8 Gm Inhaler) 1 puff INHALE Q4H PRN PRN Reason: wheezing Last Admin: 05/01/23 09:48 Dose: 1 puff Alprazolam (Alprazolam 0.5 Mg Tablet) 0.5 mg PO BID PRN PRN Reason: anxiety Last Admin: 05/02/23 08:54 Dose: 0.5 mg Artificial Tears (Artificial Tears 15 Ml Drops) 2 drop EYE-BOTH Q4H PRN PRN Reason: irritation Clonidine HCl (Clonidine Hcl 0.1 Mg Tablet) 0.1 mg PO BID [facility]; Protocol Last Admin: 05/02/23 08:51 Dose: 0.1 mg Diphenhydramine HCl (Diphenhydramine Hcl 25 Mg Capsule) 50 mg PO BEDTIME PRN PRN Reason: Insomnia Last Admin: 05/01/23 21:10 Dose: 50 mg Hydroxyzine HCl (Hydroxyzine Hcl 25 Mg Tablet) 25 mg PO Q6H PRN PRN Reason: Anxiety Last Admin: 04/30/23 13:45 Dose: 25 mg Magnesium Hydroxide (Milk Of Magnesia 30 Ml Oral.Susp) 30 ml PO DAILY PRN PRN Reason: Constipation Naproxen (Naproxen 500 Mg Tablet) 500 mg PO BID [facility] Last Admin: 05/02/23 08:52 Dose: 500 mg Nicotine (Nicotine 21 Mg Patch.Td24) 21 mg TRANSDERMA DAILY PRN PRN Reason: smoking cessation Nicotine Polacrilex (Nicotine Polacrilex 2 Mg Gum) 4 mg BUCCAL Q2H PRN PRN Reason: Nicotine Cravings Last Admin: 05/01/23 09:49 Dose: 4 mg Olanzapine (Olanzapine 5 Mg Tablet) 5 mg PO TID PRN PRN Reason: agitation Last Admin: 04/29/23 11:41 Dose: 5 mg Olanzapine (Olanzapine Odt 10 Mg Tab.Rapdis) 10 mg TRANSLINGU BEDTIME [facility] Last Admin: 05/01/23 21:07 Dose: 10 mg Oxcarbazepine (Oxcarbazepine 300 Mg Tablet) 600 mg PO BEDTIME [facility] Last Admin: 05/01/23 21:06 Dose: 600 mg Trazodone HCl (Trazodone Hcl 50 Mg Tablet) 50 mg PO BEDTIME MRX1 PRN PRN Reason: Insomnia Last Admin: 04/29/23 22:09 Dose: 50 mg Trimethoprim/Sulfamethoxazole (Sulfamethox/Trimeth 800/160 Tablet) 1 tab PO BID [facility] Last Admin: 05/02/23 08:52 Dose: 1 tab Allergies Allergies Allergy/AdvReac Type Severity Reaction Status Date / Time No Known Allergies Allergy Unverified 12/14/19 17:07 [No Known Allergies*] Assessment & Plan Assessment & Plan (1) Schizoaffective disorder, bipolar type: Status: Acute Code(s): F25.0 - Schizoaffective disorder, bipolar type Plan 32 yo female, history of schizoaffective disorder, bipolar type with symptom exacerbation due to medicine non compliance with resulting symptoms of insomnia, lability, erratic behavior (took off in her car-stopped by police), disorganization. Plan: Collateral Contact TDN to 05/04/23. Encourage milieu Re-establish regime-by reported hx, pt stable on this regime for ~3 years. 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 04/30/23- Continue current tx. 05/01: Add clonidine for anxiety 05/02: no changes. Very eager for discharge tomorrow, rather than Wednesday (when 3 day notice expires). Reason for continued inpatient stay Substantial Risk for: rapid decompensation Time Spent With Patient Time: Total time managing care of this patient today ____ minutes.
[2023-05-02 18:15] VITALS: BP 117/65; PULSE 91; RESP 18; TEMP 36.6; O2SAT 99
[2023-05-02] MEDS: OLANZapine ODT 10 MG TAB.RAPDIS TRANSLINGU (21:07)
[2023-05-02] MEDS: OXcarbazepine 300 MG TABLET 600 MG PO (21:08)
[2023-05-02] MEDS: diphenhydrAMINE HCL 25 MG CAPSULE 50 MG PO (21:12)
[2023-05-03] MEDS: ALPRAZolam 0.5 MG TABLET PO ×2 (01:10→22:08)
[2023-05-03 08:37] VITALS: BP 136/57; PULSE 87; RESP 16; TEMP 36.7; O2SAT 98
[2023-05-03] MEDS: Sulfamethox/Trimeth 800/160 TABLET 1 TAB PO ×2 (08:47→22:10)
[2023-05-03] MEDS: cloNIDine HCL 0.1 MG TABLET PO ×2 (08:47→22:09)
[2023-05-03] MEDS: NaPROXEN 500 MG TABLET PO ×2 (08:47→22:09)
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
[2023-05-03 18:30] VITALS: BP 126/63; PULSE 99; RESP 16; TEMP 36.2; O2SAT 100
[2023-05-03] MEDS: diphenhydrAMINE HCL 25 MG CAPSULE 50 MG PO (22:08)
[2023-05-03] MEDS: OLANZapine ODT 10 MG TAB.RAPDIS TRANSLINGU (22:10)
[2023-05-03] MEDS: OXcarbazepine 300 MG TABLET 600 MG PO (22:10)
[2023-05-04 06:00] VITALS: BP 123/59; PULSE 92; RESP 16; TEMP 36.7; O2SAT 99
[2023-05-04] MEDS: NaPROXEN 500 MG TABLET PO (08:52)
[2023-05-04] MEDS: Sulfamethox/Trimeth 800/160 TABLET 1 TAB PO (08:52)
[2023-05-04] MEDS: cloNIDine HCL 0.1 MG TABLET PO (08:52)
[2023-05-04] MEDS: Nicotine Polacrilex 2 MG GUM 4 MG BUCCAL (10:20)
--- NOTE | 2023-05-04 14:22 | P.DS_ITS ---
DS: Providers Provider Date of Service: 05/04/23 Date of admission: 04/28/23 23:30 Date of discharge: 05/04/23 Primary care physician: Unknown Physician Admitting clinician: Selma Mcleod Attending physician on admission: Lamont Hall Attending physician on discharge: Lamont Hall Discharging clinician: Selma Mcleod DS: Diagnosis Discharge Diagnosis (1) Schizoaffective disorder, bipolar type: Status: Acute DS: Medications Discharge Medications Home Medications: Home Medications Medication Instructions Recorded Confirmed baclofen 10 mg tablet 10 mg PO BEDTIME 04/28/23 04/28/23 naproxen 500 mg tablet 500 mg PO BID 04/28/23 04/28/23 Previous Rx's Medication Instructions Recorded albuterol sulfate 90 mcg/actuation 1 puff inhalation Q4H PRN wheezing 07/17/21 aerosol inhaler (Ventolin HFA) #6.7 grams polyvinyl alcohol 1.4 % eye drops 2 drp ophthalmic (eye) Q4H PRN 07/17/21 (Artificial Tears (polyvinyl irritation 30 days #15 mL alcohol)) clonidine HCl 0.1 mg tablet 0.1 mg PO BID #60 tabs 05/04/23 diphenhydramine HCl 25 mg capsule 50 mg (2 x 25 mg) PO BEDTIME PRN 05/04/23 Insomnia #30 caps olanzapine 10 mg disintegrating 10 mg translingual BEDTIME #30 tabs 05/04/23 tablet oxcarbazepine 600 mg tablet 600 mg PO BEDTIME #30 tabs 05/04/23 sulfamethoxazole 800 1 tab PO BID #18 tabs 05/04/23 mg-trimethoprim 160 mg tablet Mental Status Exam Mental Status Exam Patient Appearance: Appropriate Patient Orientation: Person, Place, Time and Situation Level of Consciousness: Alert Patient Behavior: Talkative, Cooperative and Good Eye Contact Mood Description: Anxious Affect Description: Constricted Patient Cognition Impaired: No Ability to Follow Directions: Good Speech Pattern: Spontaneous Speech Memory Description: Intact Hallucinations: None Delusions: Not Present Perceptual Disturbances: Depersonalization Thought Process: Distracted Thought Content: positive for Circumstantial and positive for Suicidal Ideation (denies) Depressive Symptoms: Increased Anxiety and Difficulty Concentrating Judgement: Fair Data Data Completed and Pending Completed studies during hospitalization [Text1]: 04/28/23 04/28/23 04/29/23 16:25 19:18 09:03 WBC 8.0 RBC 4.01 L Hgb 12.8 Hct 37.3 MCV 93.0 MCH 31.9 MCHC 34.3 RDW 12.2 Plt Count 182 MPV 9.5 Immature Gran % (Auto) 0.3 Neut % (Auto) 59.3 Lymph % (Auto) 30.4 [place] % (Auto) 7.6 Eos % (Auto) 2.0 Baso % (Auto) 0.4 Lymph # (Auto) 2.4 [place] # (Auto) 0.6 Eos # (Auto) 0.2 Baso # (Auto) 0.0 Abs Immat Gran (auto) 0.02 Absolute Neuts (auto) 4.7 Absolute Nucleated RBC 0.000 Nucleated RBC % (auto) 0.0 Sodium 141 139 Potassium 3.3 3.5 Chloride 108 107 Carbon Dioxide 23 24 Anion Gap 13 12 BUN 9 7 L Creatinine 0.62 0.71 Estim Creat Clear Calc 113.0 98.6 Estimated GFR > 60 > 60 Random Glucose 78 Fasting Glucose 109 H Estimat Average Glucose Hemoglobin A1c % Calcium 9.0 9.3 Magnesium 1.9 Total Bilirubin 0.7 0.9 Direct Bilirubin 0.3 AST 28 25 ALT 21 21 Alkaline Phosphatase 48 57 Total Protein 6.8 7.4 Albumin 4.1 4.3 Vitamin B12 Folate TSH Beta HCG, Quant < 2 Urine Color Dark Yellow Urine Appearance Cloudy Urine pH 6.0 Ur Specific [place] 1.025 Urine Protein Trace Urine Glucose (UA) Negative Urine Ketones >=160 Urine Blood Moderate (2+) H Urine Nitrite Positive H Ur Leukocyte Esterase Moderate (2+) H Urine RBC 6-10 H Urine WBC 21-50 H Ur Squamous Epith Cells 6-10 Urine Bacteria 4+ Hyaline Casts 0-2 Urine Opiates Screen Not Detected Urine Fentanyl Screen Not Detected Ur Barbiturates Screen Not Detected Ur Phencyclidine Scrn Not Detected Ur Amphetamines Screen Not Detected U Benzodiazepines Scrn POSITIVE H Urine Cocaine Screen Not Detected U Marijuana (THC) Screen POSITIVE H Ethyl Alcohol < 10 COVID-19 ([facility]) Negative COVID-19 Clin Com See Note 04/30/23 08:21 WBC RBC Hgb Hct MCV MCH MCHC RDW Plt Count MPV Immature Gran % (Auto) Neut % (Auto) Lymph % (Auto) [place] % (Auto) Eos % (Auto) Baso % (Auto) Lymph # (Auto) [place] # (Auto) Eos # (Auto) Baso # (Auto) Abs Immat Gran (auto) Absolute Neuts (auto) Absolute Nucleated RBC Nucleated RBC % (auto) Sodium Potassium Chloride Carbon Dioxide Anion Gap BUN Creatinine Estim Creat Clear Calc Estimated GFR Random Glucose Fasting Glucose Estimat Average Glucose 100 Hemoglobin A1c % 5.1 Calcium Magnesium Total Bilirubin Direct Bilirubin AST ALT Alkaline Phosphatase Total Protein Albumin Vitamin B12 829 Folate 9.7 TSH 2.41 Beta HCG, Quant Urine Color Urine Appearance Urine pH Ur Specific [place] Urine Protein Urine Glucose (UA) Urine Ketones Urine Blood Urine Nitrite Ur Leukocyte Esterase Urine RBC Urine WBC Ur Squamous Epith Cells Urine Bacteria Hyaline Casts Urine Opiates Screen Urine Fentanyl Screen Ur Barbiturates Screen Ur Phencyclidine Scrn Ur Amphetamines Screen U Benzodiazepines Scrn Urine Cocaine Screen U Marijuana (THC) Screen Ethyl Alcohol COVID-19 ([facility]) COVID-19 Clin Com 04/28/23 Unknown Urine clean catch - Urine hernandez top Urine Culture - Final Klebsiella pneumoniae DS: Summary Hospital Course Hospital Course: Admission to adult psychiatry for exacerbation of schizoaffective disorder, bipolar type and PTSD. Probable precipitant is non compliance with medication regime. Pt was attempting to recover at her mother's home, but left the home, drove erratically, was stopped by police and needed to be captured as she ran from them. Pt signed a three day notice on admission. Medication regime was evaluated and re-established. Pt left on completion of the three day notice to return to [facility], [facility] for psychotherapy and [facility]. Status at Discharge Functional status at discharge: independent ambulation Overall status at discharge: patient is progressing back to baseline Time Spent with Patient Time attestation: Total time managing care of this patient today ____ minutes. Time spent: Less than 30 minutes Discharge Plan Discharge Anticipated Discharge Date/Time: 05/04/23 12:00 Patient Disposition: Home, Self-Care Discharge Diagnosis: Schizoaffective Disorder, Bipolar Type Referrals: Psychiatry Appt w [facility] [Other] - 05/11/23 8:40 am (Telehealth) [facility] Therapy w Melita Cabral [Other] - 05/10/23 5:00 pm (Telehealth) [address] [Other] - 05/14/23 2:40 pm (IN OFFICE) Discharge Medications: New sulfamethoxazole-trimethoprim 800-160 mg Tablet 1 tab PO BID Qty: 18 0RF diphenhydramine HCl 25 mg Capsule 50 mg PO BEDTIME PRN (Reason: Insomnia) Qty: 30 0RF clonidine HCl 0.1 mg Tablet 0.1 mg PO BID Qty: 60 0RF Protocol: Hold for SBP< HOLD for SBP < : 90 olanzapine 10 mg Tablet,Disintegrating 10 mg translingual BEDTIME Qty: 30 0RF Continued polyvinyl alcohol [Artificial Tears (polyvin alc)] 1.4 % Drops 2 drp ophthalmic (eye) Q4H PRN (Reason: irritation) 30 Days Qty: 15 1RF albuterol sulfate [Ventolin HFA] 90 mcg/actuation HFA aerosol inhaler 1 puff inhalation Q4H PRN (Reason: wheezing) Qty: 6.7 1RF baclofen 10 mg tablet 10 mg PO BEDTIME naproxen 500 mg tablet 500 mg PO BID oxcarbazepine 600 mg tablet 600 mg PO BEDTIME Qty: 30 0RF Discontinued alprazolam 0.5 mg tablet 0.5 mg PO BID PRN (Reason: anxiety) ibuprofen 600 mg tablet 600 mg PO Q8H cetirizine 10 mg Tablet 10 mg PO BEDTIME PRN (Reason: Allergy Symptoms) Discharge Orders: Discharge Order (Routine); Ordered 05/04/23 Ordered By: Selma Mcleod Diet: Advance to usual diet Activity on Discharge: As tolerated Stand Alone Forms: Patient Portal Discharge page, Community Support Care Plan Goals: Mood and Behavioral Stabilization Health Concerns: Mood and Behavioral Stabilization Plan of Treatment: Attend scheduled appointments Take medications as directed Call and/or return as needed Assessment: Discharge via three day notice of intent Discharge Date/Time: 05/04/23 11:21
== END 2023-05-04 11:21 | disposition home or self-care (01) | DRG 885 ==
LOC: HO.ED 20:20 → HO.PM5 23:35
PROVIDERS: Admitting Provider Psychiatry & Neurology Psychiatry; Emergency Provider Emergency Medicine; Visit Provider Clinical Nurse Specialist Psychiatric/Mental Health, Adult
DX: F25.0 Schizoaffective disorder, bipolar type (principal); F17.210 Nicotine dependence, cigarettes, uncomplicated; Z20.822 Contact with and (suspected) exposure to COVID-19; Z91.148 Patient's other noncompliance with medication regimen for other reason; Z62.810 Personal history of physical and sexual abuse in childhood; Z71.6 Tobacco abuse counseling; Z79.899 Other long term (current) drug therapy
CPT/HCPCS: 36415; 80048; 80053; 80076; 80307; 81001; 82607; 82746; 83036; 83735; 84443; 84702; 85025; 87086; 87088; 87186; 87635; 93005; 99285; J1200; J1630; J3486

== ENCOUNTER 2023-04-28 23:30 | Outpatient (BNV) | payer MEDICARE, MEDICAID, SELFPAY | END 2023-04-29 | PROVIDERS: Admitting Provider Psychiatry & Neurology Psychiatry; Emergency Provider Emergency Medicine; Visit Provider Internal Medicine Cardiovascular Disease | DX: F25.0 Schizoaffective disorder, bipolar type (principal) | CPT/HCPCS: 93010 ==

== ENCOUNTER → 2023-04-28 23:30 | Outpatient (BNV) | payer MEDICARE, MEDICAID, SELFPAY | PROVIDERS: Admitting Provider Psychiatry & Neurology Psychiatry; Emergency Provider Emergency Medicine; Visit Provider Clinical Nurse Specialist Psychiatric/Mental Health, Adult | DX: F25.0 Schizoaffective disorder, bipolar type (principal) | CPT/HCPCS: 90792; 99231; 99232; 99238 ==